=== PATIENT | female | born 1985 | race American Indian/Alaskan Native ===

== ENCOUNTER 2019-07-19 01:57 | Emergency (ER) | payer OTHER ==
--- NOTE | 2019-07-19 02:49 | XRay Report ---
CHEST 2 VIEWS INDICATION / CLINICAL INFORMATION: chest pain. COMPARISON: None available. FINDINGS: SUPPORT DEVICES: None. HEART / MEDIASTINUM: No significant abnormality. LUNGS / PLEURA: No significant pulmonary or pleural abnormality. No pneumothorax. ADDITIONAL FINDINGS: No significant additional findings. IMPRESSION: 1. No acute findings. Signer Name: Kevin Leong MD Signed: 07/19/2019 2:44 AM Workstation Name: [id number]
[2019-07-19] MEDS ORDERED: ACETAMINOPHEN 500 MG TAB PO ONE (03:01)
[2019-07-19] MEDS ORDERED: IBUPROFEN 600 MG TAB PO ONE (03:01)
[2019-07-19] MEDS ORDERED: ONDANSETRON 4 MG ODT TAB PO ONE (03:01)
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
[2019-07-19 04:16] VITALS: BP 98/45
== END 2019-07-19 04:10 | disposition home or self-care (01) ==
LOC: ED 01:57
DX: S29.011A Strain of muscle and tendon of front wall of thorax, initial encounter (principal); M62.830 Muscle spasm of back; F17.200 Nicotine dependence, unspecified, uncomplicated; V49.49XA Driver injured in collision with other motor vehicles in traffic accident, initial encounter; Y93.89 Activity, other specified; Y92.488 Other paved roadways as the place of occurrence of the external cause; Y99.8 Other external cause status
CPT/HCPCS: 71046; 72100; 93005; 93010; 99284; Q0162